=== PATIENT | female | born 1955 | race Caucasian/White ===

== ENCOUNTER 2018-06-14 21:53 | Inpatient (IN) | payer MEDICAID ==
[~2018-06-14] VITALS: Ht 157.5 cm; Wt 140.8 kg
[~2018-06-14 21:53] MED LIST: ASPI-1169 PO; CYCL10TA9 PO; DIPH50CA37 PO; DIVA500T2 PO; IBUP-1958 PO; METO-295 PO; METO50TA16 PO; OXYC-133 PO
--- NOTE | 2018-06-14 22:00 | NUR ---
PT AGUSTO FROM [facility] C/O BILATERAL ANKLE PAIN X1DAY. PT TRIPPED AND SPRAINED L ANKLE X1 WEEK AGO. NOTED SWELLING AND DISCOLORATIONS L ANKLE. PT IN BED 11. NAD NOTED. RESP EVEN AND UNLABORED. WILL CONTINUE TO MONITOR.
[2018-06-14 22:59] LABS: BASOPHILS # (AUTO) 0.1 /CMM (0.0-0.2); BASOPHILS % (AUTO) 0.7 % (0.0-2.0); EOSINOPHILS % (AUTO) 2.2 % (0.0-6.0); HEMATOCRIT 33 % (33-45); LYMPHOCYTES # (AUTO) 1.6 /CMM (0.8-4.8); LYMPHOCYTES % (AUTO) 16.2 % (20.0-44.0); MEAN CORPUSCULAR HGB CONC 33 g/dl (31.0-36.0); MEAN CORPUSCULAR VOLUME 92 fL (82-100); MONOCYTES # (AUTO) 1.3 /CMM (0.1-1.30); MONOCYTES % (AUTO) 13.8 % (2.0-12.0); NEUTROPHILS # (AUTO) 6.5 /CMM (1.8-8.9); NEUTROPHILS % (AUTO) 67.1 % (43.0-81.0); PLATELET COUNT (AUTO) 240 /CMM (150-450); WHITE BLOOD COUNT (AUTO) 9.7 K/uL (4.3-11.0)
[2018-06-14] MEDS ORDERED: MORPHINE SULFATE INJ 2 MG/ML DISP.SYRIN IV ONE (23:00)
[2018-06-14] MEDS ORDERED: ONDANSETRON HCL/PF 4 MG/2 ML VIAL ONE (23:00)
[2018-06-14] MEDS ORDERED: CLINDAMYCIN 900 MG/6 ML VIAL ONE (23:00)
[2018-06-14] MEDS ORDERED: CLINDAMYCIN IV RTU IN D5W 900 MG/50 ML PIGGYBACK IV ONE (23:00)
[2018-06-14] MEDS ORDERED: MORPHINE SULFATE INJ 4 MG/ML DISP.SYRIN ONE (23:00)
[2018-06-14] MEDS ORDERED: ONDANSETRON HCL/PF 4 MG/2 ML VIAL IVP ONE (23:00)
[2018-06-14] MEDS ORDERED: IV NS 0.9% 1,000 ML BAG IV ONE (23:00)
[2018-06-14 23:10] LABS: CALCIUM, SERUM 7.9 mg/dL (8.5-10.1); CARBON DIOXIDE 30 mmol/L (21-32); CHLORIDE 107 mmol/L (98-107); CREATININE 0.8 mg/dL (0.6-1.3); GLUCOSE 99 mg/dL (74-106); POTASSIUM 3.9 mmol/L (3.5-5.1); SODIUM SERUM 138 mmol/L (136-145); UREA NITROGEN, BLOOD 21 mg/dL (7-18)
--- NOTE | 2018-06-14 23:19 | NUR ---
TECH AT BEDSIDE FOR EKG
[2018-06-14 23:24] LABS: ALANINE AMINOTRANSFERASE 18 U/L (12-78); ALBUMIN 2.8 g/dL (3.4-5.0); ALKALINE PHOSPHATASE 68 U/L (46-116); ASPARTATE AMINOTRANSFERASE 13 U/L (15-37); BILIRUBIN,DIRECT 0.1 mg/dL (0.0-0.2); BILIRUBIN,TOTAL 0.5 mg/dL (0.2-1.0); TOTAL PROTEIN, SERUM 5.8 g/dL (6.4-8.2)
--- NOTE | 2018-06-14 23:52 | NUR ---
PT TAKEN TO RADIOLOGY VIA NIKKO
--- NOTE | 2018-06-15 00:07 | NUR ---
OLIVER TAVARES PER MILK HOUSE WORKER DEGRASSE
--- NOTE | 2018-06-15 00:18 | NUR ---
PER PT REQUEST AND VERBAL ORDER FROM [facility] SAUSAGE AND WIENER, INDWELLING CATHETER INSERTED. URINE COLLECTED AND SENT TO LAB.
--- NOTE | 2018-06-15 00:22 | NUR ---
BED 306-2 MS
[2018-06-15 00:27] LABS: APPEARANCE,URINE Clear (CLEAR); BILIRUBIN,URINE Negative (NEGATIVE); BLOOD, URINE Negative Ery/uL (NEGATIVE); COLOR,URINE Yellow (YELLOW); KETONES,URINE Negative (NEGATIVE); LEUKOCYTE ESTERASE ,URINE Negative (NEGATIVE); NITRITE, URINE Negative (NEGATIVE); PH,URINE 6.5 (5.0-8.0); PROTEIN,URINE Trace mg/dl (NEGATIVE); UGLUCOSE Negative (NEGATIVE); UROBILINOGEN,URINE 0.2 EU/dL (0.2)
--- NOTE | 2018-06-15 00:37 | NUR ---
REPORT GIVEN TO AZAR KAUFFMAN FOR ROMI
[2018-06-15 00:53] LABS: BACTERIA,URINE Few /HPF (None Seen); SQUAMOUS EPITHELIAL CELL,UR Few /HPF (None Seen)
[2018-06-15 01:15] VITALS: BP 107/68
--- NOTE | 2018-06-15 01:20 | NUR ---
RN OPEN NOTES RECEIVED PATIENT FROM ER VIA NIKKO. A/O X4. ON 2LPM O2 VIA NC. IV ACCESS IN RAC, PATENT AND INTACT, NO SIGNS OF REDNESS OR INFILTRATION. ORIENTED PATIENT TO UNIT AND ROOM. ALL PHOTOS TAKEN. BED IN LOW LOCKED POSITION WITH SIDE RAILS X2. CALL LIGHT WITHIN REACH. WILL CONTINUE TO MONITOR.
[2018-06-15] MEDS ORDERED: CYCL10TA9 PO (02:43)
[2018-06-15] MEDS ORDERED: ACETAMINOPHEN 325 MG TABLET PO PRN (04:00)
[2018-06-15] MEDS ORDERED: IV NS 0.9% 1,000 ML BAG IV PRN (04:00)
[2018-06-15] MEDS ORDERED: CLINDAMYCIN 600 MG in IV NS 0.9% 50 ML IV SCH (05:00)
[2018-06-15] MEDS: ENOXAPARIN SODIUM 40 MG/0.4 ML DISP.SYRIN SQ SCH (05:31)
[2018-06-15] MEDS: MORPHINE SULFATE INJ 2 MG/ML DISP.SYRIN IV PRN ×3 (05:53→21:30)
--- NOTE | 2018-06-15 05:53 | NUR ---
RN NOTES ADMINISTERED MORPHINE 4M IV AT PATIENT REQUEST FOR PAIN 10/16 IN LLE. NO COMPLICATIONS NOTED. WILL CONTINUE TO MONITOR.
[2018-06-15] MEDS ORDERED: IV NS 0.9% 1,000 ML IV PRN (06:00)
[2018-06-15] MEDS: ONDANSETRON HCL/PF 4 MG/2 ML VIAL IVP PRN ×4 (06:01→15:28)
[2018-06-15 06:10] LABS: BASOPHILS # (AUTO) 0.1 /CMM (0.0-0.2); BASOPHILS % (AUTO) 0.7 % (0.0-2.0); EOSINOPHILS % (AUTO) 2.7 % (0.0-6.0); HEMATOCRIT 32 % (33-45); HEMOGLOBIN 10.7 g/dL (11.5-14.8); LYMPHOCYTES # (AUTO) 1.4 /CMM (0.8-4.8); LYMPHOCYTES % (AUTO) 16.7 % (20.0-44.0); MEAN CORPUSCULAR HGB CONC 34 g/dl (31.0-36.0); MEAN CORPUSCULAR VOLUME 91 fL (82-100); MONOCYTES # (AUTO) 1.2 /CMM (0.1-1.30); MONOCYTES % (AUTO) 15.4 % (2.0-12.0); NEUTROPHILS # (AUTO) 5.2 /CMM (1.8-8.9); NEUTROPHILS % (AUTO) 64.5 % (43.0-81.0); PLATELET COUNT (AUTO) 201 /CMM (150-450); RED BLOOD CELL COUNT(AUTO) 3.51 MIL/uL (4.0-5.2); WHITE BLOOD COUNT (AUTO) 8.1 K/uL (4.3-11.0)
--- NOTE | 2018-06-15 06:45 | NUR ---
RN CLOSING NOTES PATIENT RESTING IN BED, EASILY AROUSABLE. A/O X4. ON 2LPM O2 VIA NC. IV ACCESS IN RAC WITH NS INFUSING, PATENT AND INTACT, NO SIGNS OF REDNESS OR INFILTRATION. ALL NEEDS MET. NO SIGNIFICANT CHANGES THROUGH THE NIGHT. BED IN LOW LOCKED POSITION WITH SIDE RAILS X2. CALL LIGHT WITHIN REACH. WILL ENDORSE TO AM SHIFT FOR ROMI.
[2018-06-15 07:09] LABS: ALBUMIN 2.5 g/dL (3.4-5.0); BILIRUBIN,TOTAL 0.4 mg/dL (0.2-1.0); CALCIUM, SERUM 7.7 mg/dL (8.5-10.1); CREATININE 0.5 mg/dL (0.6-1.3); MAGNESIUM 2.1 mg/dL (1.8-2.4); PHOSPHORUS 2.8 mg/dL (2.5-4.9); POTASSIUM 3.9 mmol/L (3.5-5.1); TOTAL PROTEIN, SERUM 5.2 g/dL (6.4-8.2)
[2018-06-15 07:39] LABS: THYROID STIMULATING HORMONE 5.143 uIU/mL (0.358-3.74)
[2018-06-15 08:00] VITALS: BP 86/50
--- NOTE | 2018-06-15 08:00 | NUR ---
MS RN RECEIVED ON BED, AWAKE,ALERT ORIENTED X4,NOT IN ANY FORM OF DISTRESS, RESPIRATIONS EVEN AND UNLABORED,NO SOB NOTED, BILATERAL FOOT SWELLING, DENIES PAIN AT THIS TIME,ALL NEEDS ATTENDED.
--- NOTE | 2018-06-15 10:00 | NUR ---
ms rn on bed, no distress noted, due meds given.tolerated well.
[2018-06-15] MEDS: PANTOPRAZOLE 40 MG TABLET.DR PO SCH (10:20)
[2018-06-15] MEDS: ASPIRIN 81 MG TAB.CHEW PO SCH (10:20)
[2018-06-15] MEDS: DIVALPROEX SODIUM 500 MG TABLET.DR PO SCH ×2 (10:20→21:29)
[2018-06-15] MEDS: LACTOBACILLUS RHAMNOSUS GG 1 EACH CAP.SPRINK PO SCH ×2 (10:21→17:21)
[2018-06-15] MEDS: CYCLOBENZAPRINE 10 MG TABLET PO SCH ×3 (10:21→21:32)
[2018-06-15] MEDS: CLINDAMYCIN 600 MG in IV D5W 50 ML IV SCH ×3 (10:22→20:44)
[2018-06-15 11:27] LABS: FERRITIN 77 ng/mL (8-388)
[2018-06-15 11:35] LABS: IRON, SERUM 90 ug/dl (50-175); TOTAL IRON BINDING CAPACITY 318 ug/dl (250-450)
[2018-06-15 16:00] VITALS: BP 135/90
--- NOTE | 2018-06-15 18:32 | NUR ---
ms rn on bed, no distress noted, all needs attended.
--- NOTE | 2018-06-15 19:40 | NUR ---
MS RN NOTE: PATIENT RESTING IN BED, NO ACUTE DISTRESS NOTED. BREATHING EVEN AND UNLABORED, NO SOB NOTED. IV TO RAC IN PLACE. ESCOBAR CATHETER IN PLACE, EMPTY AT THIS TIME. BED LOCKED AND IN LOWEST POSITION, CALL LIGHT IN REACH, WILL CONTINUE TO MONITOR.
[2018-06-15 20:00] VITALS: BP 116/73
--- NOTE | 2018-06-15 21:45 | NUR ---
MS RN NOTE: PATIENT COMPLAINS OF PAIN 8/10 TO BLE, MORPHINE 4MG IV GIVEN PER MD ORDER. WILL CONTINUE TO MONITOR.
[2018-06-16] MEDS: MORPHINE SULFATE INJ 2 MG/ML DISP.SYRIN IV PRN ×3 (02:14→20:13)
--- NOTE | 2018-06-16 02:15 | NUR ---
MS RN NOTE: PATIENT COMPLAINS OF PAIN 8/10 TO LLE, MORPHINE 4MG IV GIVEN PER MD ORDER. WILL CONTINUE TO MONITOR.
[2018-06-16] MEDS: ENOXAPARIN SODIUM 40 MG/0.4 ML DISP.SYRIN SQ SCH (04:48)
[2018-06-16] MEDS: CLINDAMYCIN 600 MG in IV D5W 50 ML IV SCH ×2 (04:48→13:08)
--- NOTE | 2018-06-16 06:10 | NUR ---
MS RN NOTE: PATIENT RESTING IN BED, NO ACUTE DISTRESS NOTED. BREATHING EVEN AND UNLABORED, NO SOB NOTED. IV TO RAC IN PLACE. ESCOBAR CATHETER IN PLACE. BED LOCKED AND IN LOWEST POSITION, CALL LIGHT IN REACH, WILL ENDORSE TO DAY NURSE TO CONTINUE WITH PLAN OF CARE.
[2018-06-16 07:35] LABS: BASOPHILS % (AUTO) 0.6 % (0.0-2.0); HEMATOCRIT 31 % (33-45); HEMOGLOBIN 10.4 g/dL (11.5-14.8); LYMPHOCYTES # (AUTO) 1.5 /CMM (0.8-4.8); LYMPHOCYTES % (AUTO) 19.2 % (20.0-44.0); MEAN CORPUSCULAR HGB CONC 34 g/dl (31.0-36.0); MEAN CORPUSCULAR VOLUME 91 fL (82-100); MONOCYTES # (AUTO) 1.1 /CMM (0.1-1.30); MONOCYTES % (AUTO) 14.1 % (2.0-12.0); NEUTROPHILS # (AUTO) 4.8 /CMM (1.8-8.9); NEUTROPHILS % (AUTO) 63.1 % (43.0-81.0); PLATELET COUNT (AUTO) 229 /CMM (150-450); RED BLOOD CELL COUNT(AUTO) 3.36 MIL/uL (4.0-5.2); WHITE BLOOD COUNT (AUTO) 7.6 K/uL (4.3-11.0)
[2018-06-16 07:41] LABS: CREATININE 0.5 mg/dL (0.6-1.3); POTASSIUM 3.7 mmol/L (3.5-5.1)
[2018-06-16] MEDS: PANTOPRAZOLE 40 MG TABLET.DR PO SCH (07:41)
--- NOTE | 2018-06-16 07:48 | NUR ---
M/S RN OPENING NOTES RECEIVED PATIENT ON BED ON LEFT SIDE LYING POSITION, A/O X 4 AND RESPONSIVE TO ALL STIMULI. PATIENT ABLE TO MAKE NEEDS KNOWN. RESPIRATION EVEN AND NON LABORED WITH NO ACUTE RESPIRATORY DISTRESS, LUNGS CLEARED BILATERALLY. ABDOMEN SOFT AND NON DISTENDED WITH ACTIVE BOWEL SOUNDS TO ALL QUADRANTS, ON ESCOBAR CATHETER WITH CLEAR DARK YELLOW URINE. SKIN WARM TO TOUCH AND DRY. PATIENT COMPLAIN OF PAIN 5/10, WILL ADMINISTER PAIN MEDICATION ORDERED. IV SITE AT RIGHT AC GAUGE 18 WITH NO S/SX OF INFILTRATION. ALL CONCERNS ADDRESSED. PLACED CALL LIGHT WITHIN REACH FOR SAFETY. WILL CONTINUE TO EVALUATE CARE.
[2018-06-16 08:00] VITALS: BP 124/72
[2018-06-16] MEDS: CYCLOBENZAPRINE 10 MG TABLET PO SCH ×3 (08:31→22:41)
[2018-06-16] MEDS: ASPIRIN 81 MG TAB.CHEW PO SCH (08:32)
[2018-06-16] MEDS: DIVALPROEX SODIUM 500 MG TABLET.DR PO SCH ×2 (08:32→22:41)
[2018-06-16] MEDS: LACTOBACILLUS RHAMNOSUS GG 1 EACH CAP.SPRINK PO SCH ×2 (08:32→16:49)
[2018-06-16] MEDS ORDERED: FUROSEMIDE 40 MG/4 ML VIAL IV SCH ×2 (09:00→15:11)
[2018-06-16] MEDS ORDERED: FUROSEMIDE 40 MG/4 ML VIAL IV ONE (15:30)
[2018-06-16 16:00] VITALS: BP 130/68
--- NOTE | 2018-06-16 18:00 | NUR ---
M/S RN CLOSING NOTES PATIENT A/O X 4 AND ABLE TO MAKE NEEDS KNOWN, RESPONSIVE TO ALL STIMULI. RESPIRATION EVEN AND NON LABORED WITH NO ACUTE RESPIRATORY DISTRESS, OXYGEN AND NASAL CANNULA ON BEDSIDE PREPARED NEEDED. ABDOMEN SOFT AND NON DISTENDED WITH ACTIVE BOWEL SOUNDS TO ALL QUADRANTS. SKIN WARM TO TOUCH AND DRY. PAIN ON LEFT LOWER LEG DUE TO S/P FALL WITH MORPHINE GIVEN 0834 ORDERED, PATIENT DID NOT ASKED FOR ANY PAIN MEDICATION AFTERWARDS. IV SITE ON RIGHT ANTECUBITAL GAUGE 18 WITH NO S/SX OF INFILTRATION ON SITE, REMAINED PATENT IN FLUSHING. ALL CONCERNS ADDRESSED. PLACED CALL LIGHT WITHIN REACH FOR SAFETY. ENDORSED PATIENT CASE TO NEXT SHIFT.
--- NOTE | 2018-06-16 19:58 | NUR ---
MS/RN OPENING NOTES RECEIVED PATIENT IN BED, AWAKE, ALERT, HAVING DINNER ASSISTED BY SENIOR DESIGNER, BENOIT PROVIDED FLUIDS AND REQUETED SOME JUICE, GALVAN ON LEFT ANKLE WITH GRIMACE, PAIN OF 8/10. SKIN WARM TO TOUCH, BED LOCKED, CALL LIGHTS WITHIN REACH, BLOOD PRESSURE CHECK AT 1028/84,AWAKE, VERBALIZES NEEDS.
[2018-06-16 20:00] VITALS: BP 102/84
--- NOTE | 2018-06-16 20:13 | NUR ---
MS/RN NOTES ADMINISTERED PATIENT PAIN MEDICATION PRESCRIBED BY MORPHINE 4MG IVP ./ ALERT, ORIENTED X3, ABLE TO VERBALIZE NEEDS, WILL MONITOR.
[2018-06-16] MEDS: ONDANSETRON HCL/PF 4 MG/2 ML VIAL IVP PRN (20:20)
--- NOTE | 2018-06-16 20:20 | NUR ---
MS/RN NOTES PATIENT REQUESTED FOR MEDICATION FOR NAUSEA, NEEDED ZOFRAN IVP TO GIVE.
--- NOTE | 2018-06-16 22:37 | NUR ---
CYCLOBENZAPRINE HCL 10MG PO WAS REMOVED SECOND ATTEMP IN THE OTHER OMNICELL, THE OTHER ONE DID NOT HAVE MEDICATION TO DISPENSE, INFORM CHARGE NURSE.
[2018-06-17] VITALS: BP 104/67
[2018-06-17] MEDS: MORPHINE SULFATE INJ 2 MG/ML DISP.SYRIN IV PRN ×4 (00:56→22:31)
--- NOTE | 2018-06-17 00:56 | NUR ---
MS/RN NOTES PATIENT REPORTED 8/10 IN LEFT ANKLE, ALERT, ORIENTED, REPOSITIONED FOR COMFORT, ELEVATED FEET, PAIN MEDICATION ADMINISTERED MORPHINE 2MG, TO MONITOR RELIEF.
[2018-06-17] MEDS: ENOXAPARIN SODIUM 40 MG/0.4 ML DISP.SYRIN SQ SCH (04:55)
--- NOTE | 2018-06-17 07:24 | NUR ---
306-2 MS/RN NOTES PATIENT SLEP INTERMITENTLY, PAIN MONITORED, ABLE TO VERBALIZE NEEDS AT ALL TIMES, REQUIRE ASSISTANCE IN TURING AND REPOSITON. SKIN WARM TO TOUCH. STEPHANIE LOCKED, MAINTAIN HYDRATION, MONITORED FOR ANY CHANGES, CALL LIGHTS WITHIN REACH.
[2018-06-17 07:25] LABS: BASOPHILS % (AUTO) 0.5 % (0.0-2.0); EOSINOPHILS % (AUTO) 3.7 % (0.0-6.0); HEMATOCRIT 31 % (33-45); HEMOGLOBIN 10.3 g/dL (11.5-14.8); LYMPHOCYTES # (AUTO) 1.6 /CMM (0.8-4.8); LYMPHOCYTES % (AUTO) 26.8 % (20.0-44.0); MEAN CORPUSCULAR HGB CONC 33 g/dl (31.0-36.0); MEAN CORPUSCULAR VOLUME 92 fL (82-100); MONOCYTES # (AUTO) 0.8 /CMM (0.1-1.30); MONOCYTES % (AUTO) 12.9 % (2.0-12.0); NEUTROPHILS # (AUTO) 3.4 /CMM (1.8-8.9); NEUTROPHILS % (AUTO) 56.1 % (43.0-81.0); PLATELET COUNT (AUTO) 225 /CMM (150-450); RED BLOOD CELL COUNT(AUTO) 3.36 MIL/uL (4.0-5.2); WHITE BLOOD COUNT (AUTO) 6.1 K/uL (4.3-11.0)
[2018-06-17 07:45] LABS: CREATININE 0.6 mg/dL (0.6-1.3); POTASSIUM 3.1 mmol/L (3.5-5.1)
[2018-06-17 08:00] VITALS: BP 141/69
--- NOTE | 2018-06-17 08:00 | NUR ---
MS RN RECEIVED ON BED, AWAKE,ALERT,.ORIENTED X4,NOT IN ANY FORM 0F DISTRESS, RESPIRATIONS EVEN AND UNLABORED,NO SOB NOTED, LUNGS ARE CLEAR,ABDOMEN SOFT,POSITIVE BOWEL SOUNDS, LOWER EXTREMITIES SWOLLEN, ALL NEEDS ATTENDED.
[2018-06-17] MEDS: PANTOPRAZOLE 40 MG TABLET.DR PO SCH (08:54)
[2018-06-17] MEDS: ASPIRIN 81 MG TAB.CHEW PO SCH (08:54)
[2018-06-17] MEDS: CYCLOBENZAPRINE 10 MG TABLET PO SCH ×3 (08:54→21:45)
[2018-06-17] MEDS: LACTOBACILLUS RHAMNOSUS GG 1 EACH CAP.SPRINK PO SCH ×2 (08:54→18:23)
[2018-06-17] MEDS: DIVALPROEX SODIUM 500 MG TABLET.DR PO SCH ×2 (08:54→21:45)
--- NOTE | 2018-06-17 09:30 | NUR ---
MS ASKEW BREAKFAST SERVED,DUE MEDS GIVEN,TOLERATED WELL.
--- NOTE | 2018-06-17 09:30 | NUR ---
MS ASKEW BREAKFAST SERVED DUE MEDS GIVEN,TOLERATED WELL.
--- NOTE | 2018-06-17 10:30 | NUR ---
MS RN WAS SEEN BY DR. MARLY Harding/ ORDERS MADE AND CARRIED OUT.
--- NOTE | 2018-06-17 11:00 | NUR ---
MS RN WAS SEEN BY DR. MARLY Harding/ ORDERS MADE AND CARRIEDOUT.
[2018-06-17 16:00] VITALS: BP 132/84
[2018-06-17] MEDS: POTASSIUM CHLORIDE 20 MEQ TAB.PRT.SR PO SCH ×2 (17:17→18:23)
--- NOTE | 2018-06-17 18:52 | NUR ---
ms rn on bed, no distress noted,all needs attended.
--- NOTE | 2018-06-17 19:20 | NUR ---
MS RN NOTE RECEIVED PT IN STABLE CONDITION, A&O X4, ABLE TO MAKE NEEDS KNOWN. PT WAS ON THE PHONE WITH . NO SIGNS OF SOB OR DISTRESS, NO C/O PAIN. ESCOBAR PATENT WITH ADEQUATE URINE DRAINING. IV PATENT AND INTACT. ALL CURRENT NEEDS MET: BED LOW, LOCKED, UPPER RAILS UP AND CALL LIGHT WITHIN REACH. WILL CONT TO MONITOR.
[2018-06-17 20:00] VITALS: BP 122/74
[2018-06-17 20:07] VITALS: BP 122/74
--- NOTE | 2018-06-17 22:31 | NUR ---
MS RN NOTE PRN MORPHINE 4 MG GIVEN FOR PAIN 7/10 LOCATED IN THE L LEG. WILL CONT TO MONITOR.
[2018-06-17] MEDS: ONDANSETRON HCL/PF 4 MG/2 ML VIAL IVP PRN (22:35)
--- NOTE | 2018-06-17 22:35 | NUR ---
MS RN NOTE PT NOTED WITH NAUSEA, PRN ZOFRAN 4 MG ADMINISTERED. WILL CONT TO MONITOR.
--- NOTE | 2018-06-17 23:05 | NUR ---
MS RN NOTE NAUSEA REASSESSED, PT STATES SHE IS NO LONGER FEELING S/S OF NAUSEA. WILL CONT TO MONITOR.
--- NOTE | 2018-06-17 23:15 | NUR ---
MS RN NOTE PAIN ASSESSED WITH PAIN MED EFFECTIVE. WILL CONT TO MONITOR.
[2018-06-18] MEDS: MORPHINE SULFATE INJ 2 MG/ML DISP.SYRIN IV PRN ×2 (03:06→11:20)
--- NOTE | 2018-06-18 03:06 | NUR ---
MS RN NOTE PRN MORPHINE 4 MG GIVEN FOR PAIN 7/10 LOCATED IN THE L LEG. WILL CONT TO MONITOR.
--- NOTE | 2018-06-18 03:06 | NUR ---
MS RN NOTE PRN MORPHINE 4 MG IV GIVEN FOR PAIN IN L LEG. WILL CONT TO MONITOR.
[2018-06-18] MEDS: ENOXAPARIN SODIUM 40 MG/0.4 ML DISP.SYRIN SQ SCH (03:07)
--- NOTE | 2018-06-18 03:36 | NUR ---
MS RN NOTE PAIN REASSESSED, WITH VERBALIZATION OF EFFECTIVENESS. WILL CONT TO MONITOR
--- NOTE | 2018-06-18 06:14 | NUR ---
MS RN NOTE PT IN STABLE CONDITION, A&O X4, ABLE TO MAKE NEEDS KNOWN. PT IN BED, RESTING. NO SIGNS OF SOB OR DISTRESS, NO C/O PAIN. ESCOBAR PATENT WITH ADEQUATE URINE DRAINING. IV PATENT AND INTACT. ALL CURRENT NEEDS MET: BED LOW, LOCKED, UPPER RAILS UP AND CALL LIGHT WITHIN REACH. WILL CONT TO MONITOR AND ENDORSE TO NEXT SHIFT FOR ROMI.
[2018-06-18 06:21] LABS: BASOPHILS % (AUTO) 0.5 % (0.0-2.0); EOSINOPHILS % (AUTO) 4.5 % (0.0-6.0); HEMATOCRIT 32 % (33-45); HEMOGLOBIN 10.6 g/dL (11.5-14.8); LYMPHOCYTES # (AUTO) 1.7 /CMM (0.8-4.8); MEAN CORPUSCULAR HGB CONC 34 g/dl (31.0-36.0); MEAN CORPUSCULAR VOLUME 91 fL (82-100); MONOCYTES # (AUTO) 0.8 /CMM (0.1-1.30); MONOCYTES % (AUTO) 13.1 % (2.0-12.0); NEUTROPHILS # (AUTO) 3.2 /CMM (1.8-8.9); NEUTROPHILS % (AUTO) 53.9 % (43.0-81.0); PLATELET COUNT (AUTO) 238 /CMM (150-450); WHITE BLOOD COUNT (AUTO) 5.9 K/uL (4.3-11.0)
[2018-06-18 06:47] LABS: CALCIUM, SERUM 8.2 mg/dL (8.5-10.1); CREATININE 0.6 mg/dL (0.6-1.3); POTASSIUM 3.7 mmol/L (3.5-5.1)
--- NOTE | 2018-06-18 07:30 | NUR ---
m/s plugging machine operator: initial assessment received pt in bed asleep, but arousable. resp. even and unlabored. no distress noted. call light within reach. will continue to monitor.
[2018-06-18 08:00] VITALS: BP 125/63
--- NOTE | 2018-06-18 09:00 | NUR ---
m/s orthotics assistant: md visit seen and examined by dr. paige at this time. for d'c planning to acute rehab vs snf. pt aware and refuse to go there and wants to go back to assisted living. pt for rodrigo flynn. pt aware.
[2018-06-18] MEDS: ASPIRIN 81 MG TAB.CHEW PO SCH (09:07)
[2018-06-18] MEDS: DIVALPROEX SODIUM 500 MG TABLET.DR PO SCH ×2 (09:07→21:52)
[2018-06-18] MEDS: LACTOBACILLUS RHAMNOSUS GG 1 EACH CAP.SPRINK PO SCH ×2 (09:07→17:02)
[2018-06-18] MEDS: CYCLOBENZAPRINE 10 MG TABLET PO SCH ×3 (09:07→21:53)
[2018-06-18] MEDS: PANTOPRAZOLE 40 MG TABLET.DR PO SCH (09:07)
--- NOTE | 2018-06-18 10:30 | NUR ---
m/s pot press operator: rodrigo flynn pgiancarlo flynn done, pt needs snf as recommendation from therapist. physical therapist spoke to dr. paige re: need snf placement. case management to arrange and will see the pt.
--- NOTE | 2018-06-18 11:20 | NUR ---
M/S PROPERTY ACCOUNTANT: NOTES C/O 10/16 LEFT LOWER LEG PAIN, MEDICATED WITH MORPHINE 4MG IVP BY RN. INSTRUCTED TO CALL FOR ASSISTANCE. WILL CONTINUE TO MONITOR.
--- NOTE | 2018-06-18 11:50 | NUR ---
M/S STRUCTURAL METAL FABRICATOR APPRENTICE: NOTES PT IN BED SOUNDS ASLEEP. NO DISTRESS NOTED. WILL CONTINUE TO MONITOR.
--- NOTE | 2018-06-18 12:00 | NUR ---
m/s ornamental iron worker apprentice: notes pt sounds asleep. no distress noted. lunch served. will monitor.
--- NOTE | 2018-06-18 14:00 | NUR ---
m/s chemistry account manager: notes awaken at this time and having her lunch. instructed to call for assistance. will continue to monitor.
[2018-06-18 16:00] VITALS: BP 119/64
--- NOTE | 2018-06-18 18:00 | NUR ---
m/s entry level manufacturing engineer: notes in bed sounds asleep. no distress noted. needs attended. call light within reach. will monitor.
--- NOTE | 2018-06-18 19:25 | NUR ---
MS RN OPENING NOTES Received patient asleep, easily arouse, A/O x 4. On semi-Raymundo's position on bed, on O2 at 2LPM via NC, no SOB/respiratory distress noted. Patient claimed minimal pain but able to go back to sleep. With patent indwelling catheter with clear yellow urine output noted. With patent peripheral IV line, L hand G#22, SL. Kept bed low and locked, siderails up, call light within easy reach. Will continue to monitor accordingly.
[2018-06-18 20:00] VITALS: BP 134/89
[2018-06-19] MEDS: MORPHINE SULFATE INJ 2 MG/ML DISP.SYRIN IV PRN ×3 (00:18→15:34)
--- NOTE | 2018-06-19 01:57 | NUR ---
MS RN NOTES Patient called RN for LLE pain. Upon assessment, limited LLE movement noted, more painful on the calf with left foot flexion, redness and warmer compared to RLE. Notified spine surgeon MARILY LEMUS with order STAT Venous Doppler Study. Notified radiology, awaiting for the tech at this time. Instructed patient to avoid/minimized movement of the LLE. Morphine was given earlier and not yet due at this time. Will continue to monitor the patient intensively.
--- NOTE | 2018-06-19 02:06 | NUR ---
MS RN NOTES Patient on RA, no SOB/respiratory discomfort at this time. Patient denied chest pain. Explained to patient the action taken and that no other pain meds due at this time except Tylenol. Patient refused the Tylenol, according to the patient it has no effect on her. Assisted patient to position of comfort, instructed to minimize movement of the LLE. Patient verbalized understanding. Will continue to monitor accordingly.
--- NOTE | 2018-06-19 02:30 | NUR ---
MS RN NOTES Patient noted comfortably asleep at this time. Still awaiting for the potato grader for the venous doppler study.
--- NOTE | 2018-06-19 03:30 | NUR ---
MS RN NOTES geophysical data technician done with venous doppler study. Awaiting for result reading at this time. Patient noted comfortably asleep. Will continue to monitor accordingly.
[2018-06-19] MEDS: ENOXAPARIN SODIUM 40 MG/0.4 ML DISP.SYRIN SQ SCH (04:43)
[2018-06-19 06:20] LABS: BASOPHILS % (AUTO) 0.5 % (0.0-2.0); EOSINOPHILS % (AUTO) 4.7 % (0.0-6.0); HEMATOCRIT 32 % (33-45); LYMPHOCYTES # (AUTO) 1.5 /CMM (0.8-4.8); LYMPHOCYTES % (AUTO) 25.3 % (20.0-44.0); MEAN CORPUSCULAR HGB CONC 34 g/dl (31.0-36.0); MEAN CORPUSCULAR VOLUME 91 fL (82-100); MONOCYTES # (AUTO) 0.7 /CMM (0.1-1.30); MONOCYTES % (AUTO) 11.4 % (2.0-12.0); NEUTROPHILS # (AUTO) 3.6 /CMM (1.8-8.9); NEUTROPHILS % (AUTO) 58.1 % (43.0-81.0); PLATELET COUNT (AUTO) 238 /CMM (150-450); RED BLOOD CELL COUNT(AUTO) 3.53 MIL/uL (4.0-5.2); WHITE BLOOD COUNT (AUTO) 6.1 K/uL (4.3-11.0)
[2018-06-19 06:46] LABS: CREATININE 0.5 mg/dL (0.6-1.3); POTASSIUM 3.6 mmol/L (3.5-5.1)
--- NOTE | 2018-06-19 06:49 | NUR ---
MS RN CLOSING NOTES Patient noted asleep at this time. No new complaints made. All nursing needs attended. Kept bed low and locked, siderails up with call light within easy reach. Patient did not complaint of any pain throughout the shift. For neuro-surgery consult. Per daughter request, no [place] on Thursday morning as set date for IDT meeting. Endorsed to the next shift. Addendum: 06/19/18 at 0653 by KATIUSKA GONZALES RN wrong documentation.
--- NOTE | 2018-06-19 06:54 | NUR ---
MS RN CLOSING NOTES Patient noted asleep at this time. All nursing needs attended. Medicated for pain, noted effective. Patient asked for additional pain meds but when reassessed for pain meds pt noted asleep comfortably and snoring. Kept bed low and locked, siderails up with call light within easy reach. Afebrile the whole shift. Stat venous doppler for LLE resulted: negative DVT. For possible discharge today. Endorsed to the next shift.
--- NOTE | 2018-06-19 07:30 | NUR ---
RN MS NOTES PT IN BED, ASLEEP, EASY TO AROUSE, ALERT AND ORIENTED, NO COMPLAINT AT THIS TIME, RESPIRATIONS NORMAL AND NOT LABORED, CALL LIGHT WITHIN REACH, NEEDS ATTENDED.
[2018-06-19 08:00] VITALS: BP 159/78
[2018-06-19] MEDS: DIVALPROEX SODIUM 500 MG TABLET.DR PO SCH (09:27)
[2018-06-19] MEDS: PANTOPRAZOLE 40 MG TABLET.DR PO SCH (09:27)
[2018-06-19] MEDS: ASPIRIN 81 MG TAB.CHEW PO SCH (09:28)
[2018-06-19] MEDS: CYCLOBENZAPRINE 10 MG TABLET PO SCH ×2 (09:28→16:24)
[2018-06-19] MEDS: LACTOBACILLUS RHAMNOSUS GG 1 EACH CAP.SPRINK PO SCH ×2 (09:28→16:23)
--- NOTE | 2018-06-19 13:00 | NUR ---
RN MS NOTES PT IN BED, ASLEEP, EASY TO AROUSE, ALERT AND ORIENTED, DENIES PAIN AT THIS TIME, NOT IN DISTRESS, SEEN BY ALEJA ART HISTORY INSTRUCTOR, DISCHARGE ORDER GIVEN, DISCHARGE AND MEDICATION INSTRUCTIONS PROVIDED TO PT, VERBALIZED UNDERSTANDING, PER PT, SHE WANTS TO GO BACK TO ASSISTED LIVING.
[2018-06-19 15:53] VITALS: BP 122/63
--- NOTE | 2018-06-19 17:00 | NUR ---
RN MS NOTES PT IN BED, AWAKE, ALERT AND ORIENTED, NO COMPLAINT OF PAIN AT THIS TIME, RESPIRATIONS NORMAL, CALL LIGHT WITHIN REACH, DISCHARGE AND MEDICATION INSTRUCTIONS PROVIDED TO PT, VERBALIZED UNDERSTANDING, BELONGINGS ACCOUNTED FOR, SKIN ASSESSMENT DONE AND PHOTOS TAKEN, [facility] ARRANGED TRANSPORT SERVICE BACK TO [facility] TO FOLLOW PT AT [facility], PICKED UP BY 2 AMBULANCE PERSONNEL, LEFT VIA [facility] IN STABLE CONDITION.
== END 2018-06-19 16:57 | DRG 194 ==
LOC: ER 21:54 → MED 06-15 00:22
PROVIDERS: ADMIT Internal Medicine; ATTEND Nurse Practitioner Acute Care
DX: I11.0 Hypertensive heart disease with heart failure (principal); N17.9 Acute kidney failure, unspecified; I27.20 Pulmonary hypertension, unspecified; E44.0 Moderate protein-calorie malnutrition; E66.01 Morbid (severe) obesity due to excess calories; R53.2 Functional quadriplegia; Z68.43 Body mass index [BMI] 50.0-59.9, adult; I50.9 Heart failure, unspecified; E03.9 Hypothyroidism, unspecified; E11.9 Type 2 diabetes mellitus without complications; E87.6 Hypokalemia; E78.5 Hyperlipidemia, unspecified; Z88.0 Allergy status to penicillin; Z79.82 Long term (current) use of aspirin; K58.9 Irritable bowel syndrome, unspecified; Z79.899 Other long term (current) drug therapy; M19.90 Unspecified osteoarthritis, unspecified site; M79.7 Fibromyalgia; F43.10 Post-traumatic stress disorder, unspecified; G47.33 Obstructive sleep apnea (adult) (pediatric); S99.919A Unspecified injury of unspecified ankle, initial encounter; W19.XXXA Unspecified fall, initial encounter; Y92.9 Unspecified place or not applicable; T50.2X5A Adverse effect of carbonic-anhydrase inhibitors, benzothiadiazides and other diuretics, initial encounter; I50.33 Acute on chronic diastolic (congestive) heart failure
CPT/HCPCS: 36415; 70450-TC; 71045-TC; 72125-TC; 73610-TC; 80048-TC; 80053-TC; 80061-TC; 80076-TC; 80164-TC; 81000-TC; 82728-TC; 83540-TC; 83605-TC; 83735-TC; 84100-TC; 84443-TC; 84484-TC; 85025-TC; 85730-TC; 87040-TC; 87081-TC; 87086-TC; 93307-TC; 93971-TC; A4216; G0378; J1650; J1940; J2270; J2405; J3490; J7030; J7060